=== PATIENT | female | born 1945 | race Caucasian/White ===

== ENCOUNTER → 2016-12-16 14:37 | Outpatient (CLI) | payer MEDICARE, OTHER ==
[~2016-12-16 14:37] MED LIST: BUTALBITAL-ASP-1 CAP PO; CALCIUM 500 + D1 TAB PO; HYDROCODONE-APA1 TAB PO; LIPITOR10 MG PO; LISINOPRIL-HCTZ1 T11 PO; MAGNESIUM GLUC500 M1 PO; MULTIPLE VITAMI1 TA1 PO; PRESERVISION AR1 CAP PO; PROZAC20 MG PO; ULTRAM50 MG PO; VERELAN360 MG PO
[2017-02-27 07:15] VITALS: BMI 28.9
== END | disposition home or self-care (01) ==
LOC: D.MRI 14:37
DX: M25.511 Pain in right shoulder (principal)

== ENCOUNTER 2017-02-27 05:36 | Day surgery (SDC) | payer MEDICARE, OTHER ==
[2017-02-26 12:08] LABS: HEMATOCRIT 39.8 % (36.0-48.0); HEMOGLOBIN 13.3 g/dL (12-16); MCH 28.5 pg (26.0-34.0); MCHC 33.4 g/dL (31.0-37.0); MCV 85.4 fL (80.0-100.0); MEAN PLATELET VOLUME 9.7 fL (7.4-10.4); RBC 4.66 10x6/uL (4.00-5.40); RDW 13.6 % (11.5-14.5)
[2017-02-26 12:40] LABS: ANION GAP 15.4 mmol/L (8-16); CALCIUM 9.8 mg/dL (8.5-10.1); CARBON DIOXIDE 24.5 mmol/L (21.0-32.0); POTASSIUM - SERUM 3.9 mmol/L (3.5-5.1)
[~2017-02-27] VITALS: Ht 172.7 cm; Wt 86.4 kg
--- NOTE | ~2017-02-27 | OP ---
PATIENT NAME: SANDRA STEELE MEDICAL RECORD: [id number] :41 LOCATION:[facility] ADMISSION DATE: SURGEON: HERBERT CROWDER MD DATE OF OPERATION: 02/27/2017 PREOPERATIVE DIAGNOSES: Rotator cuff tear of the right shoulder with impingement syndrome and acromioclavicular arthritis. POSTOPERATIVE DIAGNOSES: Rotator cuff tear of the right shoulder with impingement syndrome and acromioclavicular arthritis. PROCEDURES: Arthroscopic rotator cuff repair of the right shoulder; arthroscopic distal clavicle excision of right shoulder; arthroscopic subacromial decompression; acromioplasty and bursectomy of right shoulder. SURGEON: Herbert Crowder MD ANESTHESIA: General. INTRAOPERATIVE COMPLICATIONS: None. SUMMARY OF PATHOLOGIC FINDINGS: As predicted in the preoperative MRI, the patient did have a full thickness rotator cuff tear. She also had a downward sloping acromion with a type 3 acromion and acromioclavicular arthropathy. OPERATIVE SUMMARY IN DETAIL: After obtaining the appropriate preoperative orthopedic surgery consent as well as anesthetic consultation, evaluation and clearance, the patient was brought to the operating room and placed on the table in supine position. After general laryngeal mask was administered, the patient was placed in left lateral decubitus position. All pressure points were well padded to include down leg peroneal pad as well as axillary roll. She was held firmly to the operating table using the vacuum pack suction system. Right upper extremity and shoulder were then prepped and draped in routine sterile fashion. The arm was held in the [employer] traction boom at 30 degrees of forward flexion, 30 degrees of abduction with 10 pounds of traction laterally. Arthroscopy was established in the glenohumeral joint from a posterior portal. Anterior portal was established in the anterior safe interval. Diagnostic arthroscopy did show the patient to have full thickness rotator cuff tearing. Accessory lateral portal was created. Transrotator cuff with arthroscopic view was used to debride the undersurface of the rotator cuff of all nonviable-appearing rotator cuff tissue and decorticate the footprint for reapproximation. Attention was then turned to the subacromial space through the accessory lateral port. [place] surface tissue ablation system was utilized to denude the undersurface of the acromion of all soft tissue elements and release coracoacromial ligament. A 5-0 barrel bur was then used to perform acromioplasty at the level of acromioclavicular joint. Under direct arthroscopic visualization, distal one-third of the acromion was taken down for 1 cm, relieving the patient's arthropathy. Lastly, further decortication was carried out and then a single #2 FiberTape was placed in an inverted mattress style fashion and anchored laterally using a 5.5 SwiveLock from [employer]. Having completed this, arthroscopy portals were closed in routine interrupted fashion using 4-0 Prolene. Sterile dressings were applied. The patient was awakened and taken to recovery room in stable condition. All final needle and sponge counts were correct. OPERATIVE REPORT [id number] SANDRA STEELE TRANSINT:[id number] Voice Confirmation ID: [id number] DOCUMENT ID: [id number] HERBERT CROWDER MD at 1003 CC: [id number] DICTATION DATE: 02/27/17 1042 [facility] CAR[facility]ER: 02/27/17 1625 [facility] 02/27/17 [id number] [place] [id number]
[~2017-02-27 05:36] MED LIST changes: -HYDROCODONE-APA1 TAB PO
[2017-02-27 07:15] VITALS: BP 151/84; Ht 172.7 cm; Wt 86.4 kg
[2017-02-27] MEDS ORDERED: HYDROCODONE-APA1 TAB PO (10:39)
== END 2017-02-27 12:30 | disposition home or self-care (01) ==
LOC: D.OPS 05:36
PROVIDERS: Anesthesiology
DX: M75.121 Complete rotator cuff tear or rupture of right shoulder, not specified as traumatic (principal); M75.41 Impingement syndrome of right shoulder; M19.011 Primary osteoarthritis, right shoulder; Z01.812 Encounter for preprocedural laboratory examination

== ENCOUNTER → 2018-10-20 09:53 | Outpatient (CLI) | payer MEDICARE, OTHER ==
[2017-02-27 07:15] VITALS: BMI 28.9
[~2018-10-20 09:53] MED LIST changes: +HYDROCODONE-APA1 TAB PO
== END | disposition home or self-care (01) ==
LOC: D.MRI 09:53
PROVIDERS: ATTEND Orthopaedic Surgery
DX: S83.272A Complex tear of lateral meniscus, current injury, left knee, initial encounter (principal)